=== PATIENT | female | born 1985 | race African-American/Black ===

== ENCOUNTER 2017-10-28 14:06 | Emergency (ER) | payer OTHER ==
[2017-10-28] MEDS ORDERED: Ketorolac INJ* 60 MG/2 ML VIAL IM ONE (15:33)
[2017-10-28 16:08] VITALS: BP 115/73
--- NOTE | 2017-10-28 16:12 | RAD ---
Indication: Right neck pain. 5 views of the cervical spine demonstrates straightening of the normal lordosis. Disc spaces all well-preserved. Spinal canal appears to be intact. IMPRESSION: Straightening of the normal lordosis.
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
== END 2017-10-28 16:38 | disposition home or self-care (01) ==
LOC: UCEAST 14:06
DX: M43.6 Torticollis (principal)
CPT/HCPCS: 72050; 96372; 99202; G0463; J1885